=== PATIENT | male | born 1950 | race Caucasian/White ===

== ENCOUNTER 2022-02-17 14:00 | Emergency (ER) | payer OTHER ==
[2022-02-17 14:15] VITALS: TEMP 98.3; BMI 25.7
[2022-02-17] MEDS ORDERED: LIDOCAINE HCL 2% JELLY 11 ML TP ONE (15:32)
[2022-02-17] MEDS ORDERED: CEFTRIAXONE 1 GM/50 ML BAG ONE (16:03)
[2022-02-17] MEDS ORDERED: LIDOCAINE HCL 2% JELLY 10 ML CARTRIDGE UR ONE (16:09)
[2022-02-17 16:13] LABS: EPI CELLS 8 /uL (0-25.1); HYALINE CASTS 0 /uL (0-3.1); PH,URINE 6.5 (5.0-8.0); URINE APPEARANCE CLEAR; URINE BACTERIA 10 /uL (0-1359); URINE BILIRUBIN NEGATIVE (NEGATIVE); URINE COLOR YELLOW; URINE GLUCOSE (UA) NEGATIVE (NEGATIVE); URINE KETONE NEGATIVE (NEGATIVE); URINE LEUK ESTERASE TRACE (NEGATIVE); URINE NITRITE NEGATIVE (NEGATIVE); URINE PROTEIN NEGATIVE (NEGATIVE); URINE RBC 9 /uL (0-23.9); URINE UROBILINOGEN 0.2 mg/dL (0.2-1.0); URINE WBC 23 /uL (0-25.8)
[2022-02-17 16:20] LABS: BASO % 0.5 % (0-2.0); EOS % 0.5 % (0-4.5); HEMOGLOBIN 14.7 GM/dL (11.7-16.9); LYMPH % 24.6 % (8-40); MCH 27.6 pg (25.7-33.7); MCHC 33.4 g/dl (32.0-35.9); MEAN CELL VOLUME 82.5 fl (80-96); MEAN PLT VOLUME 7.6 fl (7.5-11.1); NEUT % 66.4 % (42.8-82.8); PLATELET COUNT 236 10^3/uL (134-434); RBC 5.34 M/mm3 (4.00-5.60); RDW 13.6 % (11.9-15.9); WHITE BLOOD COUNT 5.8 K/mm3 (4.0-10.0)
[2022-02-17 16:30] LABS: CALCIUM 9.2 mg/dL (8.5-10.1)
[2022-02-17 16:31] LABS: BLOOD UREA NITROGEN 10.5 mg/dL (7-18)
[2022-02-17 16:34] LABS: CREATININE 0.8 mg/dL (0.55-1.3)
[2022-02-17 16:36] LABS: BILIRUBIN,TOTAL 0.5 mg/dL (0.2-1); TOT PROT 7.4 g/dl (6.4-8.2)
[2022-02-17 20:43] VITALS: BP 145/62; PULSE 72; RESP 18
== END 2022-02-17 20:43 | disposition home or self-care (01) ==
LOC: JER 14:00
PROC: 3E033GC Introduction of Other Therapeutic Substance into Peripheral Vein, Percutaneous Approach (ICD-10-PCS; principal; 2022-02-17)
DX: R33.9 Retention of urine, unspecified (principal)
CPT/HCPCS: 36415; 74177-TC; 80053; 81003; 85025; 87086; 99285-25; Q9967

== ENCOUNTER 2023-03-25 11:05 | Observation (INO) | payer OTHER ==
[2023-03-25] MEDS ORDERED: ACETAMINOPHEN 500 MG TABLET (FP) PO ONE (12:16)
[2023-03-25] MEDS ORDERED: LIDOCAINE 4% PATCH TP ONE ×2 (12:17→12:19)
[2023-03-25] MEDS ORDERED: ACETAMINOPHEN 325 MG TABLET (FP) ONE (12:19)
[2023-03-25 12:51] LABS: BASO % 0.8 % (0-2.0); EOS % 0.8 % (0-4.5); HEMATOCRIT 44.1 % (35.4-49); HEMOGLOBIN 15.3 GM/dL (11.7-16.9); LYMPH % 31.5 % (8-40); MCHC 34.8 g/dl (32.0-35.9); MEAN CELL VOLUME 83.4 fl (80-96); MEAN PLT VOLUME 7.1 fl (7.5-11.1); MONO % 10.8 % (3.8-10.2); NEUT % 56.1 % (42.8-82.8); PLATELET COUNT 205 10^3/uL (134-434); RBC 5.29 M/mm3 (4.00-5.60); RDW 13.8 % (11.9-15.9); WHITE BLOOD COUNT 4.5 K/mm3 (4.0-10.0)
[2023-03-25 13:09] LABS: POTASSIUM 4.5 mmol/L (3.5-5.1)
[2023-03-25 13:12] LABS: BLOOD UREA NITROGEN 11.5 mg/dL (7-18); CALCIUM 9.7 mg/dL (8.5-10.1)
[2023-03-25 13:13] LABS: ALBUMIN 3.8 g/dl (3.4-5.0)
[2023-03-25 13:15] LABS: CREATININE 0.9 mg/dL (0.55-1.3)
[2023-03-25 13:17] LABS: BILIRUBIN,TOTAL 0.5 mg/dL (0.2-1); TOT PROT 7.6 g/dl (6.4-8.2)
[2023-03-25] MEDS ORDERED: IBUPROFEN 200 MG TABLET PO PRN (16:38)
[2023-03-25] MEDS ORDERED: CYCLOBENZAPRINE HCL 5 MG TABLET PO ONE (16:40)
[2023-03-25] MEDS ORDERED: CYCLOBENZAPRINE HCL 5 MG TABLET ONE (17:14)
[2023-03-25] MEDS ORDERED: ACETAMINOPHEN 1000 MG/100 ML BAG IVPB PRN (17:24)
[2023-03-25] MEDS ORDERED: CYCLOBENZAPRINE HCL 5 MG TABLET PO PRN (17:25)
[2023-03-25] MEDS ORDERED: ONDANSETRON 4 MG/2 ML VIAL IVPUSH PRN (17:25)
[2023-03-25] MEDS ORDERED: LIDOCAINE PATCH REMOVAL MC ONE (22:00)
[2023-03-25] MEDS: LIDOCAINE PATCH REMOVAL MC SCH (23:13)
[2023-03-26 00:10] VITALS: BMI 28.8
[2023-03-26 09:51] LABS: HEMATOCRIT 44.4 % (35.4-49); HEMOGLOBIN 15.2 GM/dL (11.7-16.9); MCH 28.6 pg (25.7-33.7); MCHC 34.3 g/dl (32.0-35.9); MEAN CELL VOLUME 83.4 fl (80-96); MEAN PLT VOLUME 7.5 fl (7.5-11.1); PLATELET COUNT 196 10^3/uL (134-434); RBC 5.32 M/mm3 (4.00-5.60); RDW 13.7 % (11.9-15.9); WHITE BLOOD COUNT 4.8 K/mm3 (4.0-10.0)
[2023-03-26 10:10] LABS: ALBUMIN 3.6 g/dl (3.4-5.0); BLOOD UREA NITROGEN 12.9 mg/dL (7-18); CALCIUM 8.9 mg/dL (8.5-10.1); MAGNESIUM 2.1 mg/dL (1.8-2.4)
[2023-03-26 10:13] LABS: CREATININE 0.9 mg/dL (0.55-1.3)
[2023-03-26 10:14] LABS: BILIRUBIN,TOTAL 0.7 mg/dL (0.2-1); PHOSPHOROUS 2.9 mg/dL (2.5-4.9)
[2023-03-26] MEDS: LIDOCAINE 4% PATCH TP SCH (10:56)
[2023-03-26] MEDS: ENOXAPARIN NA (PORCINE) 40 MG/0.4 ML DISP.SYRIN SQ SCH (10:56)
[2023-03-26] MEDS: LIDOCAINE PATCH REMOVAL MC SCH (22:20)
[2023-03-26] MEDS: GABAPENTIN 100 MG CAPSULE PO SCH (22:20)
[2023-03-27] MEDS: GABAPENTIN 100 MG CAPSULE PO SCH (06:08)
[2023-03-27 07:34] VITALS: RESP 18
[2023-03-27] MEDS: ENOXAPARIN NA (PORCINE) 40 MG/0.4 ML DISP.SYRIN SQ SCH (09:54)
[2023-03-27] MEDS: LIDOCAINE 4% PATCH TP SCH (09:55)
[2023-03-27 13:11] VITALS: BP 125/70; PULSE 80; TEMP 98
== END 2023-03-27 01:15 | disposition home or self-care (01) ==
LOC: JER 11:05 → JERBED 14:48 → J8W 23:07
PROVIDERS: ADMIT Internal Medicine; ATTEND Internal Medicine
PROC: 3E023GC Introduction of Other Therapeutic Substance into Muscle, Percutaneous Approach (ICD-10-PCS; principal; 2023-03-25)
DX: M54.2 Cervicalgia (principal); M54.6 Pain in thoracic spine; R29.898 Other symptoms and signs involving the musculoskeletal system; N40.0 Benign prostatic hyperplasia without lower urinary tract symptoms; V43.52XA Car driver injured in collision with other type car in traffic accident, initial encounter; Y93.89 Activity, other specified; Y92.410 Unspecified street and highway as the place of occurrence of the external cause; H93.12 Tinnitus, left ear
CPT/HCPCS: 36415; 70450-TC; 70551-TC; 72125-TC; 72141-TC; 80053; 83690; 83735; 84100; 84153; 84484; 85025; 85027; 93005; 93010; 96372; 97116-GP; 99285-25; G0378

== ENCOUNTER 2023-08-05 11:38 | Emergency (ER) | payer OTHER ==
[2023-08-05 11:44] VITALS: BP 154/69; PULSE 95; RESP 18; TEMP 97.1; BMI 29.1
== END 2023-08-05 12:44 | disposition home or self-care (01) ==
LOC: JERFT 11:38
DX: H92.02 Otalgia, left ear (principal); H93.12 Tinnitus, left ear
CPT/HCPCS: 99283-25